=== PATIENT | male | born 1955 | race Two or more races ===

== ENCOUNTER 2018-11-11 07:03 | Day surgery (SDC) | payer BC ==
[2018-11-08 13:36] VITALS: BMI 33.4
[~2018-11-11 07:03] MED LIST: LACTATED RINGERS 1,000 ML IV SCH
[2018-11-11 07:23] VITALS: RESP 16; TEMP 97.7
[2018-11-11] MEDS ORDERED: PROPOFOL 10 MG/ML 20 ML VIAL IV ONE (07:34)
[2018-11-11] MEDS ORDERED: GLYCOPYRROLATE 0.2 MG/ML 2 ML VIAL ONE (07:34)
--- NOTE | 2018-11-11 07:42 | P.GSHP ---
History of Present Illness H&P Date: 11/11/18 Chief Complaint: Colon cancer screening Patient today for elective colonoscopy. Last colonoscopy 6 years ago. Family history of colon cancer in his father. No bowel complaints. No history of polyps. Past Medical History Past Medical History: Sleep Apnea/CPAP/BIPAP, Thyroid Disorder Additional Past Medical History / Comment(s): severe sleep apnea History of Any Multi-Drug Resistant Organisms: None Reported Past Surgical History: Orthopedic Surgery Additional Past Surgical History / Comment(s): colonoscopy, surgery for fx rt ankle Past Anesthesia/Blood Transfusion Reactions: Previous Problems w/ Anesthesia Additional Past Anesthesia/Blood Transfusion Reaction / Comment(s): during last colonoscopy at [facility] "we lost him" due to sleep apnea and he stopped breathing per . Surgical and anesthesia records from that colonoscopy from [facility] received and added to chart. Smoking Status: Never smoker - Past Family History Father Family Medical History: Cancer Medications and Allergies Home Medications Medication Instructions Recorded Confirmed Type Cetirizine HCl 10 mg PO BID 11/08/18 11/11/18 History Ergocalciferol (Vitamin D2) 50,000 unit PO MO 11/08/18 11/11/18 History [Vitamin D2] Levothyroxine Sodium [Synthroid] 88 mcg PO DAILY 11/08/18 11/11/18 History Allergies Allergy/AdvReac Type Severity Reaction Status Date / Time amoxicillin Allergy Rash/vomiti Verified 11/11/18 07:16 ng Penicillins Allergy rash/vomiti Verified 11/11/18 07:16 ng Surgical - Exam Vital Signs Temp Pulse Resp BP Pulse Ox 97.7 F 63 16 146/88 95 11/11/18 07:20 11/11/18 07:20 11/11/18 07:20 11/11/18 07:20 11/11/18 07:20 Physical exam: General: Well-developed, well-nourished HEENT: Normocephalic, sclerae nonicteric Abdomen: Nontender, nondistended Extremities: No edema Neuro: Alert and oriented Assessment and Plan (1) Colon cancer screening Narrative/Plan: Will proceed with colonoscopy at this time. Current Visit: Yes Status: Acute Code(s): Z12.11 - ENCOUNTER FOR SCREENING FOR MALIGNANT NEOPLASM OF COLON SNOMED Code(s): 466281633
--- NOTE | 2018-11-11 07:59 | P.PCN ---
Date of Procedure: 11/11/18 Procedure(s) Performed: PREOPERATIVE DIAGNOSIS: Colon cancer screening POSTOPERATIVE DIAGNOSIS: Diverticulosis PROCEDURE: Colonoscopy ANESTHESIA: MAC SURGEON: Yonny Koch M.D. SPECIMENS: None ENDOSCOPIC PROCEDURE: The patient was placed on the endoscopy table in the left decubitus position. The Olympus colonoscope was inserted into the anus and passed under direct visualization to the base of the cecum. The appendiceal orifice was visualized. From that point the scope was slowly withdrawn inspecting all surfaces carefully. There were no neoplastic inflammatory or polypoid lesions throughout the cecum, ascending, transverse, descending, sigmoid and rectum. There was moderate diverticulosis noted primarily in the left side of the colon. Digital rectal examination was normal. The patient was taken to the recovery room in stable condition per anesthesia guidelines. RECOMMENDATIONS: Increase fiber. Follow-up colonoscopy 5 years.
[2018-11-11 08:49] VITALS: BP 143/85; PULSE 73
== END 2018-11-11 09:01 | disposition home or self-care (01) ==
LOC: ORWHC2ENDO 07:03
PROVIDERS: ATTEND Surgery
DX: Z12.11 Encounter for screening for malignant neoplasm of colon (principal); K57.30 Diverticulosis of large intestine without perforation or abscess without bleeding; K21.9 Gastro-esophageal reflux disease without esophagitis; Z80.0 Family history of malignant neoplasm of digestive organs; I10 Essential (primary) hypertension; G47.33 Obstructive sleep apnea (adult) (pediatric); Z99.89 Dependence on other enabling machines and devices; E07.9 Disorder of thyroid, unspecified; Z79.890 Hormone replacement therapy; Z79.899 Other long term (current) drug therapy; Z88.0 Allergy status to penicillin
CPT/HCPCS: J2704; G0105

== ENCOUNTER 2021-07-17 16:54 | Emergency (ER) | payer MEDICARE ==
[2021-07-17 17:12] VITALS: TEMP 100.2
[2021-07-17] MEDS ORDERED: ACETAMINOPHEN TAB 500 MG TAB PO STA (17:34)
--- NOTE | 2021-07-17 17:46 | ED ---
General Adult HPI - General Chief complaint: Recheck/Abnormal Lab/Rx Stated complaint: covid+ Time Seen by Provider: 07/17/21 17:14 Source: patient, RN notes reviewed Mode of arrival: ambulatory Limitations: no limitations - History of Present Illness Initial comments: 65-year-old male with a past medical history of sleep apnea, thyroid disorder presents to the emergency room for a chief complaint of [place] virus. Patient states that he started to have a slight cough and not feeling well for days ago. States that yesterday he tested positive for [place] virus. Patient is vaccinated. He actually got his booster on Wednesday. Patient states that he was told by his doctor to come to the ER to get antibody infusion. Patient denies shortness of breath. Denies chest pain. Has been taking Tylenol for fevers.Patient has no other complaints at this time including shortness of breath, chest pain, abdominal pain, nausea or vomiting, headache, or visual changes. - Related Data Home Medications Medication Instructions Recorded Confirmed Cetirizine HCl 10 mg PO BID 11/08/18 07/17/21 Levothyroxine Sodium [Synthroid] 88 mcg PO DAILY 11/08/18 07/17/21 Multivitamins, Thera [Multivitamin 1 tab PO DAILY 07/17/21 07/17/21 (formulary)] Allergies Allergy/AdvReac Type Severity Reaction Status Date / Time amoxicillin Allergy Rash/vomiti Verified 07/17/21 17:48 ng Penicillins Allergy rash/vomiti Verified 07/17/21 17:48 ng Review of Systems ROS Statement: Those systems with pertinent positive or pertinent negative responses have been documented in the HPI. ROS Other: All systems not noted in ROS Statement are negative. Past Medical History Past Medical History: Sleep Apnea/CPAP/BIPAP, Thyroid Disorder Additional Past Medical History / Comment(s): severe sleep apnea History of Any Multi-Drug Resistant Organisms: None Reported Past Surgical History: Orthopedic Surgery Additional Past Surgical History / Comment(s): colonoscopy, surgery for fx rt ankle Past Anesthesia/Blood Transfusion Reactions: Previous Problems w/ Anesthesia Additional Past Anesthesia/Blood Transfusion Reaction / Comment(s): during last colonoscopy at [facility] "we lost him" due to sleep apnea and he stopped breathing per . Surgical and anesthesia records from that colonoscopy from [facility] received and added to chart. Past Psychological History: No Psychological Hx Reported Smoking Status: Never smoker Past Alcohol Use History: Rare Past Drug Use History: None Reported - Past Family History Father Family Medical History: Cancer General Exam Limitations: no limitations General appearance: alert, in no apparent distress Head exam: Present: atraumatic Eye exam: Present: normal appearance, PERRL, EOMI. Absent: scleral icterus, conjunctival injection ENT exam: Present: normal exam, mucous membranes moist Neck exam: Present: normal inspection, full ROM. Absent: tenderness Respiratory exam: Present: normal lung sounds bilaterally. Absent: respiratory distress, wheezes Cardiovascular Exam: Present: regular rate, normal rhythm, normal heart sounds GI/Abdominal exam: Present: soft, normal bowel sounds. Absent: distended, tenderness Course Vital Signs 07/17/21 07/17/21 17:08 18:04 Temperature 100.2 F H Pulse Rate 89 85 Respiratory 20 18 Rate Blood Pressure 181/101 160/85 O2 Sat by Pulse 97 96 Oximetry Medical Decision Making - Medical Decision Making Vitals are stable. Patient is well-appearing. No respiratory distress. Patient was given antibodies. He was discharged home to follow up with primary care. Disposition Clinical Impression: COVID Disposition: HOME SELF-CARE Condition: Good Instructions (If sedation given, give patient instructions): Coronavirus Disease 2019 (COVID-19) Additional Instructions: Please follow-up with your doctor in one to 2 days. Take vitamin C, vitamin D, and zinc. Return to the emergency room for any worsening symptoms. Is patient prescribed a controlled substance at d/c from ED?: No Referrals: Camilo Rodriguez MD [Primary Care Provider] - 1-2 days Time of Disposition: 23:44
[2021-07-17 18:05] VITALS: BP 160/85; PULSE 85; RESP 18
[2021-07-17] MEDS ORDERED: SODIUM CHLORIDE 0.9% 50 ML IVPB ONE (18:15)
[2021-07-17] MEDS ORDERED: CASIRIVIMAB (REGN10933) (EUA) 600 MG, IMDEVIMAB (REGN10987) (EUA) 600 MG in SODIUM CHLO... IVPB ONE (18:15)
== END 2021-07-17 20:14 | disposition home or self-care (01) ==
LOC: EC 16:54
DX: U07.1 COVID-19 (principal); Z88.0 Allergy status to penicillin; E07.9 Disorder of thyroid, unspecified
CPT/HCPCS: 99283; 96365; Q0243

== ENCOUNTER 2021-07-21 22:43 | Emergency (ER) | payer MEDICARE ==
[2021-07-21 23:08] VITALS: TEMP 97.8
[2021-07-21] MEDS ORDERED: DEXAMETHASONE SOD PHOSPHATE 10 MG/ML 1 ML VIAL IVP STA (23:16)
[2021-07-21] MEDS ORDERED: SODIUM CHLORIDE 0.9% 1,000 ML IV STA (23:16)
[2021-07-21] MEDS ORDERED: ALBUTEROL HFA INHALER INHALATION STA (23:16)
[2021-07-21] MEDS ORDERED: KETOROLAC 15 MG/ML 1 ML VIAL IVP STA (23:16)
[2021-07-21] MEDS ORDERED: ACETAMINOPHEN TAB 500 MG TAB PO STA (23:16)
--- NOTE | 2021-07-21 23:16 | ED ---
Recheck HPI - General Chief Complaint: Dizziness Stated Complaint: vomiting, covid+ Time Seen by Provider: 07/21/21 23:14 Source: patient, family, RN notes reviewed, old records reviewed Limitations: no limitations - History of Present Illness Initial Comments: This is a 65-year-old male to the emergency throughout today. Patient presents today for evaluation regards to vertiginous symptoms nausea vomiting and diarrhea. Not feeling well. Patient has no history of coronavirus has been evaluated by primary care and given treatment for symptoms but symptoms are just progressing at this point getting worse unable tolerate oral MD Complaint: abnormal lab (Coronavirus) -: days(s) Returns Today for: persistent/worsening pain related to initial visit Symptoms Since Prior Visit: no new symptoms Context: planned re-check Associated Symptoms: fever Treatments Prior to Arrival: other (none) - Related Data Home Medications Medication Instructions Recorded Confirmed Cetirizine HCl 10 mg PO BID 11/08/18 07/17/21 Levothyroxine Sodium [Synthroid] 88 mcg PO DAILY 11/08/18 07/17/21 Multivitamins, Thera [Multivitamin 1 tab PO DAILY 07/17/21 07/17/21 (formulary)] Allergies Allergy/AdvReac Type Severity Reaction Status Date / Time amoxicillin Allergy Rash/vomiti Verified 07/21/21 23:08 ng Penicillins Allergy rash/vomiti Verified 07/21/21 23:08 ng Review of Systems ROS Statement: Those systems with pertinent positive or pertinent negative responses have been documented in the HPI. ROS Other: All systems not noted in ROS Statement are negative. Past Medical History Past Medical History: Sleep Apnea/CPAP/BIPAP, Thyroid Disorder Additional Past Medical History / Comment(s): severe sleep apnea History of Any Multi-Drug Resistant Organisms: None Reported Past Surgical History: Orthopedic Surgery Additional Past Surgical History / Comment(s): colonoscopy, surgery for fx rt ankle Past Anesthesia/Blood Transfusion Reactions: Previous Problems w/ Anesthesia Additional Past Anesthesia/Blood Transfusion Reaction / Comment(s): during last colonoscopy at [facility] "we lost him" due to sleep apnea and he stopped breathing per . Surgical and anesthesia records from that colonoscopy from [facility] received and added to chart. Past Psychological History: No Psychological Hx Reported Smoking Status: Never smoker Past Alcohol Use History: Rare Past Drug Use History: None Reported - Past Family History Father Family Medical History: Cancer General Exam General appearance: alert, in no apparent distress Head exam: Present: atraumatic, normocephalic, normal inspection Eye exam: Present: normal appearance, PERRL, EOMI. Absent: scleral icterus, conjunctival injection, periorbital swelling ENT exam: Present: normal exam, mucous membranes moist Neck exam: Present: normal inspection. Absent: tenderness, meningismus, lymphad enopathy Respiratory exam: Present: normal lung sounds bilaterally. Absent: respiratory distress, wheezes, rales, rhonchi, stridor Cardiovascular Exam: Present: regular rate, normal rhythm, normal heart sounds. Absent: systolic murmur, diastolic murmur, rubs, gallop, clicks GI/Abdominal exam: Present: soft, normal bowel sounds. Absent: distended, tenderness, guarding, rebound, rigid Extremities exam: Present: normal inspection, full ROM, normal capillary refill. Absent: tenderness, pedal edema, joint swelling, calf tenderness Back exam: Present: normal inspection Neurological exam: Present: alert, oriented X3, CN II-XII intact Psychiatric exam: Present: normal affect, normal mood Skin exam: Present: warm, dry, intact, normal color. Absent: rash Course Vital Signs 07/21/21 07/22/21 07/22/21 23:05 01:02 02:07 Temperature 97.8 F Pulse Rate 56 L 65 65 Respiratory 18 22 22 Rate Blood Pressure 160/81 186/106 159/90 O2 Sat by Pulse 100 98 96 Oximetry - Reevaluation(s) Reevaluation #1: 07/22/21 01:49 medical record is reviewed Reevaluation #2: 07/22/21 01:49 Patient symptoms are improved Reevaluation #3: 07/22/21 03:22 Symptoms are improved here in the ER, he is no shortness of breath, patient feels good for discharge home for continued ago has abated will try outpatient nausea medications Medical Decision Making - Medical Decision Making 65 male to the ER for evaluation patient Dese for evaluation of vertigo related to coronavirus. Veins are improved here in the ER and can be discharged home - Lab Data Result diagrams: 07/22/21 00:43 07/22/21 00:43 Lab Results 07/22/21 07/22/21 07/22/21 Range/Units 00:43 00:43 00:43 WBC 8.7 (3.8-10.6) k/uL RBC 5.00 (4.30-5.90) m/uL Hgb 15.4 (13.0-17.5) gm/dL Hct 43.5 (39.0-53.0) % MCV 86.9 (80.0-100.0) fL MCH 30.7 (25.0-35.0) pg MCHC 35.3 (31.0-37.0) g/dL RDW 12.3 (11.5-15.5) % Plt Count 254 (150-450) k/uL MPV 7.0 Neutrophils % 87 % Lymphocytes % 8 % Monocytes % 4 % Eosinophils % 0 % Basophils % 0 % Neutrophils # 7.5 (1.3-7.7) k/uL Lymphocytes # 0.7 L (1.0-4.8) k/uL Monocytes # 0.4 (0-1.0) k/uL Eosinophils # 0.0 (0-0.7) k/uL Basophils # 0.0 (0-0.2) k/uL PT 10.3 (9.0-12.0) sec INR 1.0 (<1.2) APTT 24.2 (22.0-30.0) sec Sodium 134 L (137-145) mmol/L Potassium 4.0 (3.5-5.1) mmol/L Chloride 99 (98-107) mmol/L Carbon Dioxide 24 (22-30) mmol/L Anion Gap 11 mmol/L BUN 14 (9-20) mg/dL Creatinine 0.74 (0.66-1.25) mg/dL Est GFR (CKD-EPI)AfAm >90 (>60 ml/min/1.73 sqM) Est GFR (CKD-EPI)NonAf >90 (>60 ml/min/1.73 sqM) Glucose 141 H (74-99) mg/dL Plasma Lactic Acid Richie (0.7-2.0) mmol/L Calcium 9.3 (8.4-10.2) mg/dL Magnesium 2.2 (1.6-2.3) mg/dL Total Bilirubin 0.9 (0.2-1.3) mg/dL AST 32 (17-59) U/L ALT 30 (4-49) U/L Alkaline Phosphatase 83 (38-126) U/L Lactate Dehydrogenase 543 (313-618) U/L C-Reactive Protein 1.1 H (<1.0) mg/dL Total Protein 7.8 (6.3-8.2) g/dL Albumin 4.8 (3.5-5.0) g/dL 07/22/21 Range/Units 00:43 WBC (3.8-10.6) k/uL RBC (4.30-5.90) m/uL Hgb (13.0-17.5) gm/dL Hct (39.0-53.0) % MCV (80.0-100.0) fL MCH (25.0-35.0) pg MCHC (31.0-37.0) g/dL RDW (11.5-15.5) % Plt Count (150-450) k/uL MPV Neutrophils % % Lymphocytes % % Monocytes % % Eosinophils % % Basophils % % Neutrophils # (1.3-7.7) k/uL Lymphocytes # (1.0-4.8) k/uL Monocytes # (0-1.0) k/uL Eosinophils # (0-0.7) k/uL Basophils # (0-0.2) k/uL PT (9.0-12.0) sec INR (<1.2) APTT (22.0-30.0) sec Sodium (137-145) mmol/L Potassium (3.5-5.1) mmol/L Chloride (98-107) mmol/L Carbon Dioxide (22-30) mmol/L Anion Gap mmol/L BUN (9-20) mg/dL Creatinine (0.66-1.25) mg/dL Est GFR (CKD-EPI)AfAm (>60 ml/min/1.73 sqM) Est GFR (CKD-EPI)NonAf (>60 ml/min/1.73 sqM) Glucose (74-99) mg/dL Plasma Lactic Acid Richie 1.7 (0.7-2.0) mmol/L Calcium (8.4-10.2) mg/dL Magnesium (1.6-2.3) mg/dL Total Bilirubin (0.2-1.3) mg/dL AST (17-59) U/L ALT (4-49) U/L Alkaline Phosphatase (38-126) U/L Lactate Dehydrogenase (313-618) U/L C-Reactive Protein (<1.0) mg/dL Total Protein (6.3-8.2) g/dL Albumin (3.5-5.0) g/dL - EKG Data -: EKG Interpreted by Me (EKG is sinus bradycardia 54 NV 180 QRS 96 QTc 422) - Radiology Data Radiology results: report reviewed (CT chest negative for acute disease), image reviewed Disposition Clinical Impression: COVID, Vertigo, Nausea and vomiting Disposition: ADMITTED IP TO THIS [facility] Condition: Fair Instructions (If sedation given, give patient instructions): Dizziness (ED) Is patient prescribed a controlled substance at d/c from ED?: No Referrals: Camilo Rodriguez MD [Primary Care Provider] - 1-2 days
[2021-07-22] MEDS ORDERED: PROCHLORPERAZINE INJ 10 MG/2 ML VIAL IVP STA (00:01)
[2021-07-22] MEDS ORDERED: diphenhydrAMINE 50 MG/ML 1 ML VIAL IVP STA (00:01)
[2021-07-22 01:03] VITALS: PULSE 65; RESP 22
[2021-07-22 01:21] LABS: Basophils % (A) 0 %; Eosinophils % (A) 0 %; HCT 43.5 % (39.0-53.0); HGB 15.4 gm/dL (13.0-17.5); Lymphocytes # (A) 0.7 k/uL (1.0-4.8); Lymphocytes % (A) 8 %; MCH 30.7 pg (25.0-35.0); MCHC 35.3 g/dL (31.0-37.0); MCV 86.9 fL (80.0-100.0); Monocytes # (A) 0.4 k/uL (0-1.0); Monocytes % (A) 4 %; Neutrophils # (A) 7.5 k/uL (1.3-7.7); Neutrophils % (A) 87 %; Platelet Count 254 k/uL (150-450); RDW 12.3 % (11.5-15.5); WBC 8.7 k/uL (3.8-10.6)
[2021-07-22 02:01] LABS: Partial Thromboplastin Time 24.2 sec (22.0-30.0); Prothrombin Time 10.3 sec (9.0-12.0)
[2021-07-22 02:08] LABS: ALT 30 U/L (4-49); AST 32 U/L (17-59); African American GFR (CKD) >90 (>60 ml/min/1.73 sqM); Albumin 4.8 g/dL (3.5-5.0); Alkaline Phosphatase 83 U/L (38-126); Anion Gap 11 mmol/L; Blood Urea Nitrogen 14 mg/dL (9-20); C Reactive Protein 1.1 mg/dL (<1.0); Calcium 9.3 mg/dL (8.4-10.2); Carbon Dioxide 24 mmol/L (22-30); Chloride 99 mmol/L (98-107); Glucose 141 mg/dL (74-99); LDH 543 U/L (313-618); Magnesium 2.2 mg/dL (1.6-2.3); Non-African American GFR(CKD) >90 (>60 ml/min/1.73 sqM); Sodium 134 mmol/L (137-145); Total Bilirubin 0.9 mg/dL (0.2-1.3); Total Protein 7.8 g/dL (6.3-8.2)
--- NOTE | 2021-07-22 02:35 | CT ---
EXAMINATION TYPE: CT angio chest DATE OF EXAM: 07/22/2021 COMPARISON: None HISTORY: PE CT DLP: 559.2 mGycm Automated exposure control for dose reduction was used. CONTRAST: Performed with IV Contrast, patient injected with 75 mL of Isovue 370. Images obtained from the thoracic inlet to the diaphragm with IV contrast. There are 3-D post process ed images. There is some mild atelectasis at the right lung base. There is elevated right diaphragm. Heart is to p normal in size. There is no pericardial effusion. There is no pleural effusion. There are no hilar masses. There is no mediastinal adenopathy. Thoracic aorta is intact. There is no aneurysm or dissection. There is normal contrast opacification of the pulmonary arteries. There are no filling defects. The thoracic spine is intact. There is no compression fracture. Sternum is intact. Upper abdominal so ft tissues are intact. IMPRESSION: There is no evidence of pulmonary embolism. Elevated right diaphragm with right basilar atelectasis could relate to some diaphragm paralysis.
[2021-07-22 03:50] VITALS: BP 130/82
== END 2021-07-22 03:51 | disposition other institution (70) ==
LOC: EC 22:43
DX: U07.1 COVID-19 (principal); R42 Dizziness and giddiness
CPT/HCPCS: 36415; 94640; 93005; 80053; 82728; 83605; 83615; 83735; 85025; 85610; 85730; 86140; 87040; 71275; 99284; 96374; 96375 ×3; 96361; J1200; J0780; J1100; J1885; Q9967

== ENCOUNTER 2025-02-02 16:40 | Emergency (ER) | payer MEDICARE ==
[2025-02-02 16:50] VITALS: TEMP 98.3
--- NOTE | 2025-02-02 17:11 | ED ---
Wound/Laceration HPI - General Chief Complaint: Wound/Laceration Stated Complaint: left hand lac Time Seen by Provider: 02/02/25 16:54 Source: patient, RN notes reviewed Mode of arrival: ambulatory Limitations: no limitations - History of Present Illness Initial Comments: This is a 69-year-old male presenting for left index finger laceration occurring 1 hour ago. Patient states he was doing some home renovations when he excellently cut himself with a razor with bleeding controlled following application of pressure. States tetanus vaccination is not up-to-date. Denies that there is significant injury, loss of motor function or sensation. Denies use of blood thinners. Onset/Timin -: hour(s) Extremity Location: Left: Hand Place: home Patient Tetanus UTD: No Context: accidental Associated Symptoms: none Treatments Prior to Arrival: bandage - Related Data Home Medications Medication Instructions Recorded Confirmed Cetirizine HCl 10 mg PO BID 11/08/18 07/17/21 Levothyroxine Sodium [Synthroid] 88 mcg PO DAILY 11/08/18 07/17/21 Multivitamins, Thera [Multivitamin 1 tab PO DAILY 07/17/21 07/17/21 (formulary)] Previous Rx's Medication Instructions Recorded Prochlorperazine [Compazine] 10 mg PO Q8H #30 tab 07/22/21 Cephalexin [Keflex] 500 mg PO Q6HR 1 Days #12 cap 02/02/25 Allergies Allergy/AdvReac Type Severity Reaction Status Date / Time amoxicillin Allergy Rash/vomiti Verified 02/02/25 16:50 ng Penicillins Allergy rash/vomiti Verified 02/02/25 16:50 ng Review of Systems ROS Statement: Those systems with pertinent positive or pertinent negative responses have been documented in the HPI. ROS Other: All systems not noted in ROS Statement are negative. Past Medical History Past Medical History: Sleep Apnea/CPAP/BIPAP, Thyroid Disorder Additional Past Medical History / Comment(s): severe sleep apnea History of Any Multi-Drug Resistant Organisms: None Reported Past Surgical History: Orthopedic Surgery Additional Past Surgical History / Comment(s): colonoscopy, surgery for fx rt ankle Past Anesthesia/Blood Transfusion Reactions: Previous Problems w/ Anesthesia Additional Past Anesthesia/Blood Transfusion Reaction / Comment(s): during last colonoscopy at [facility] "we lost him" due to sleep apnea and he stopped breathing per . Surgical and anesthesia records from that colonoscopy from [facility] received and added to chart. Past Psychological History: No Psychological Hx Reported Smoking Status: Never smoker Past Alcohol Use History: Rare Past Drug Use History: None Reported - Past Family History Father Family Medical History: Cancer General Exam Limitations: no limitations General appearance: alert, in no apparent distress Head exam: Present: atraumatic, normocephalic, normal inspection Eye exam: Present: normal appearance, PERRL, EOMI. Absent: scleral icterus, conjunctival injection, periorbital swelling ENT exam: Present: normal exam, mucous membranes moist Neck exam: Present: normal inspection. Absent: tenderness, meningismus, lymphadenopathy Respiratory exam: Present: normal lung sounds bilaterally. Absent: respiratory distress, wheezes, rales, rhonchi, stridor Cardiovascular Exam: Present: regular rate, normal rhythm, normal heart sounds. Absent: systolic murmur, diastolic murmur, rubs, gallop, clicks GI/Abdominal exam: Present: soft, normal bowel sounds. Absent: distended, tenderness, guarding, rebound, rigid Extremities exam: Present: full ROM, normal capillary refill, other (2.5 cm horizontal laceration across dorsal aspect of left index finger proximal phalange with minimal bleeding and no obvious foreign body). Absent: tenderness, pedal edema, joint swelling, calf tenderness Back exam: Present: normal inspection Neurological exam: Present: alert, oriented X3, CN II-XII intact Psychiatric exam: Present: normal affect, normal mood Skin exam: Present: warm, dry, intact, normal color. Absent: rash Course Vital Signs 02/02/25 02/02/25 16:46 18:56 Temperature 98.3 F Pulse Rate 69 72 Respiratory 17 18 Rate Blood Pressure 182/100 171/90 O2 Sat by Pulse 97 98 Oximetry Procedures - Laceration Laceration #1 Consent Obtained: verbal consent Indication: laceration Site: upper extremity Size (cm): 3 Description: linear Depth: simple, single layer Anesthetic Used: lidocaine 1% Anesthesia Technique: nerve block Amount (mls): 3 Pre-repair: wound explored, irrigated extensively Type of Sutures: nylon Size of Sutures: 5-0 Number of Sutures: 7 Technique: running Patient Tolerated Procedure: well, no complications Medical Decision Making - Medical Decision Making Was pt. sent in by a medical professional or institution (DAYANNA Cee, WHEELAGE CLERK, urgent care, hospital, or custodial...) When possible be specific @ -No Did you speak to anyone other than the patient for history (EMS, parent, family, police, friend...)? What history was obtained from this source @ -No Did you review nursing and triage notes (agree or disagree)? Why? @ -I reviewed and agree with nursing and triage notes Were old charts reviewed (outside hosp., previous admission, EMS record, old EKG, old radiological studies, urgent care reports/EKG's, custodial records)? Report findings @ -No old charts were reviewed Differential Diagnosis (chest pain, altered mental status, abdominal pain women, abdominal pain men, vaginal bleeding, weakness, fever, dyspnea, syncope, headache, dizziness, GI bleed, back pain, seizure, CVA, palpatations, mental health, musculoskeletal)? @ -Differential Musculoskeletal Muscular strain, contusion, ligament sprain, fracture, arthritis, septic arthritis, bursitis, cellulitis, muscle spasm, nerve compression, DVT, arterial occlusion, herpes zoster, electrolyte abnormality, tumor.... This is not meant to be in all inclusive list EKG interpreted by me (3pts min.). @ -Not done X-rays interpreted by me (1pt min.). @ -None done CT interpreted by me (1pt min.). @ -None done U/S interpreted by me (1pt. min.). @ -None done What testing was considered but not performed or refused? (CT, X-rays, U/S, labs)? Why? @ -None What meds were considered but not given or refused? Why? @ -None Did you discuss the management of the patient with other professionals (professionals i.e. DAYANNA Cee, WHEELAGE CLERK, lab, RT, psych nurse, social work administrator, supervisor customer services, teacher, collections officer, case repairer)? Give summary @ -No Was smoking cessation discussed for >3mins.? @ -No Was critical care preformed (if so, how long)? @ -No Were there social determinants of health that impacted care today? How? (Homelessness, low income, unemployed, alcoholism, drug addiction, transportation, low edu. Level, literacy, decrease access to med. care, nursing home, rehab)? @ -No Was there de-escalation of care discussed even if they declined (Discuss DNR or withdrawal of care, Hospice)? DNR status @ -No What co-morbidities impacted this encounter? (DM, HTN, Smoking, COPD, CAD, Cancer, CVA, ARF, Chemo, Hep., AIDS, mental health diagnosis, sleep apnea, morbid obesity)? @ -None Was patient admitted / discharged? Hospital course, mention meds given and route, prescriptions, significant lab abnormalities, going to OR and other [facility] info. @ -IM tetanus provided. Laceration flushed copiously and sutured under sterile conditions without complication. Patient provided a dose of p.o. Keflex with remaining regimen sent to patient's pharmacy. Suture wound care instructions provided and advised follow-up for removal in 7-10 days. Discussed patient with Dr. Cortes. Undiagnosed new problem with uncertain prognosis? @ -No Drug Therapy requiring intensive monitoring for toxicity (Heparin, Nitro, Insulin, Cardizem)? @ -No Were any procedures done? @ -Laceration sutured under sterile conditions. See procedure note. Diagnosis/symptom? @ -Finger laceration Acute, or Chronic, or Acute on Chronic? @ -Acute Uncomplicated (without systemic symptoms) or Complicated (systemic symptoms)? @ -Uncomplicated Side effects of treatment? @ -No Exacerbation, Progression, or Severe Exacerbation? @ -No Poses a threat to life or bodily function? How? (Chest pain, USA, AR, pneumonia, PE, COPD, DKA, ARF, appy, cholecystitis, CVA, Diverticulitis, Homicidal, Suicidal, threat to staff... and all critical care pts) @ -No Disposition Clinical Impression: Laceration Disposition: HOME SELF-CARE Condition: Good Instructions (If sedation given, give patient instructions): Care For Your Stitches (ED) Additional Instructions: Keep clean with antibacterial soap and water at least twice daily along with dressing change. Follow-up with medical facility in 7-10 days for suture removal. Prescriptions: Cephalexin [Keflex] 500 mg PO Q6HR 1 Days #12 cap Is patient prescribed a controlled substance at d/c from ED?: No Referrals: Camilo Rodriguez MD [Primary Care Provider] - 1-2 days Time of Disposition: 19:00
[2025-02-02] MEDS: CEPHALEXIN 500 MG CAP PO STA (17:47)
[2025-02-02] MEDS: LIDOCAINE 1% INJ 10MG/ML (20 ML MDV) SQ ONE (17:47)
[2025-02-02] MEDS: DIPH,PERTUS(ACELL)TETVAC-LF 0.5 ML VIAL IM ONE (17:48)
[2025-02-02 18:59] VITALS: BP 171/90; PULSE 72; RESP 18
== END 2025-02-02 19:08 | disposition home or self-care (01) ==
LOC: EC 16:40
DX: S61.211A Laceration without foreign body of left index finger without damage to nail, initial encounter (principal); Z88.0 Allergy status to penicillin; Z23 Encounter for immunization; W26.8XXA Contact with other sharp object(s), not elsewhere classified, initial encounter
CPT/HCPCS: 90715; 99282; 12002; 90471; J2003